=== PATIENT | female | born 1960 | race Caucasian/White ===

== ENCOUNTER 2024-11-29 14:04 | Outpatient (CLI) | payer MEDICARE, MEDICAID, SELFPAY ==
--- NOTE | ~2024-11-29 | XR_ITS ---
XR wrist RT min 3V 11/29/2024 14:27 Indication: Left wrist pain after injury Procedure: 4 views left wrist Comparison: No prior studies for comparison. Findings: There is anatomic alignment. No fracture, subluxation or dislocation. Normal mineralization . No foreign bodies. Impression: 1: No significant bone or joint abnormality. Reviewed, dictated and finalized at location A. Impression: 1: No significant bone or joint abnormality.
== END 2024-11-29 14:05 | disposition home or self-care (01) ==
LOC: MICIMG 14:08
PROVIDERS: PCP Physician Assistant Medical; Visit Provider Physician Assistant Medical
DX: S69.91XA Unspecified injury of right wrist, hand and finger(s), initial encounter (principal); X58.XXXA Exposure to other specified factors, initial encounter
CPT/HCPCS: 73110

== ENCOUNTER 2024-11-30 07:45 | Outpatient (CLI) | payer MEDICARE, MEDICAID, SELFPAY ==
--- OUTSIDE RECORDS SUMMARY | 2024-11-30 07:49 | XMS_ITS ---
Author Organization [facility] Address [facility] [facility] [place] [address] Care Team Providers Care Resin Shaver Name Role Phone Luba Hutton MD Primary Care Provider [phone] Active Problems Problem Noted Date Diagnosed Date Shortness of breath 10/16/2018 Small cell lung cancer 10/14/2018 Cancer Staging:Clinical stage from 10/01/2018:Stage IIIB(cT3, cN2, cM0) - Signed by Thomas Dao MD on 09/02/2023 Encounter for chemotherapy management 09/30/2018 Encounter for intubation 09/30/2018 Mass 09/24/2018 COPD exacerbation Current Treatment and Therapy Plans No current plan information found. Past Treatment and Therapy Plans Lifetime Dose Tracking * Chemical Lifetime Dose Automatic Entry Manual Entr y Dose Length Product 5,882 mGy-cm 5,882 mGy-cm 0 mGy-cm
--- OUTSIDE RECORDS SUMMARY | 2024-11-30 07:49 | XMS_ITS | Encounter Summary ---
Author Organization [facility] Address [address] [facility] [place] [address] Care Team Providers Care Hand Candle Dipper Name Role Phone Luba Hutton MD Primary Care Provider [phone] Reason for Visit * Reason Onset Date Comments MEDICATION REFILL 06/13/2019 Encounter Details Date Type Department Care Team (Late st Contact Info) Description 06/13/[address] 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 Answer Date of Assessment Author No 10/17/2018 1:34 AM Lamar Brito RN * Is person blind or have serious difficulty seeing? Answer Date of Assessment Author No 10/17/2018 1:34 AM Lamar Brito RN * Does person have serious difficulty walking/climbing stairs? Answer Date of Assessment Author No 10/17/2018 1:34 AM Lamar Brito RN * Does person have difficulty dressing/bathing? Answer Date of Assessment Author No 10/17/2018 1:34 AM CDT Lamar Farrell RN * Does person have difficulty doing errands alone? Answer Date of Assessment Author No 10/17/2018 1:34 AM CDT Lamar Farrell RN documented as of this encounter Mental Status * Does person have difficulty concentrating/remembering/making decisions? Answer Entry Date Author No 10/17/2018 1:34 AM CDT Lamar Farrell RN documented in this encounter Miscellaneous Notes * Telephone Encounter - Henrique Sami - 06/13/2019 11:56 AM CST Patient requesting refills for the following Zantac 150 mg medications. FILI: NOV: Problem List Identified: office visit on * Medication attached per refill protocol/guidlines for further review by provider yes PCP / Resident PCP verified yes Allergies Reviewed yes Pharmacy Reviewed yes Medication details entered yes Office visit within the last six months no if not within last 6 months route to GIM-scheduling as well. Office visit greater than 12 months no routed to GIM scheduling ONLY no. 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 - Hematology/Oncology [address] [place] [phone] Thomas Dao MD [address] [place] [phone] 12/29/2024 3:00 PM CDT Appointment [facility] RAD ONC [address] [place] [phone] Doron Lanier MD [address] [place] [phone] documented as of this encounter Visit Diagnoses Not on filedocumented in this encounter Care Teams Hand Candle Dipper Relationship Specialty Start Date End Date Luba Hutton MD PCP - General 10/14/18 documented as of this encounter
--- OUTSIDE RECORDS SUMMARY | 2024-11-30 07:49 | XMS_ITS | Clinical Summary ---
Author Organization [facility] at [facility] Address [address] [place] [address] Care Team Providers Care Corporate Counselor Name Role Phone Geronimo Rodgers MD Primary Care Provider [phone] Allergies No known active allergies Medications amLODIPine (NORVASC) 5 mg tablet Take 5 mg by mouth daily 10/06/2021 Active metoprolol tartrate (LOPRESSOR) 25 mg immediate release tablet 12/03/2021 Acti ve montelukast (SINGULAIR) 10 mg tablet 12/06/2021 Active cyclobenzaprine (FLEXERIL) 10 mg tablet 12/04/2021 Active famotidine (PEPCID) 20 mg tablet 12/03/2021 Active sertraline (ZOLOFT) 100 mg tablet 11/10/2021 Active albuterol HFA (PROVENTIL HFA,VENTOLIN HFA,PROAIR HFA) 90 mcg/actuation inhaler 12/03/2021 Active Eliquis 5 mg tablet Take 1 tablet (5 mg total) by mouth 2 (two) times a day 60 tablet 3 12/10/2021 Active Active Problems No known active problems Encounters Date Type Department Care Team Description 09/22/2024 ACO Clinical Pharmacist [facility] Care Organization [address] [place] [phone] Leslie Hercules RPh from Last 3 Months Surgical History Surgery Date Site/Laterality Comments SECTION HYSTERECTOMY 07/05/1993 - 1994 Total hysterectomy NECK SURGERY OOPHORECTOMY 07/05/1993 - 1994 Bilateral BREAST BIOPSY Left Benign PORT PLACEMENT CHEST >5 YEARS 10/19/2018 N/A Medical History Medical History Date Comments Hypertension COPD (chronic obstructive pulmonary disease) (HC C) Asthma Sciatica Arthritis Lung cancer (HCC) 2019 History of chemotherapy 2019 Lung can cer History of radiation therapy 2019 Chris g cancer Family History Medical History Relation Name Comments Cancer Father Cancer Mother Breast cancer Neg Hx Relation Name Status Comments Father Mother Social History Tobacco Use Types Packs/Day Years Used Date Smoking Tobacco: Every Day Cigarettes Smokeless Tobacco: Never Comments No Sex and Gender Information Value Date Recorded Sex Assigned at Not on file 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 Gender Identity Not on file Sexual Orientation Not on file Obstetrics History Para Term AB IAB SAB Ectopic Multiple Livin g Live Births 3 3 3 Date Outcome GA Total Labor Labor//3rd Weight Sex Type Anes PTL Trini A1 A5 Name Clin Term Term Term Last Filed Vital Signs Vital Sign Reading Time Taken Comments Blood Pressure 135/80 12/10/2021 3:25 PM CDT Pulse 98 12/10/2021 3:08 PM CDT Temperature 36.9 C (98.5 F) 01/16/2018 1:19 PM CDT Respiratory Rate - - Oxygen Saturation 96% 12/10/2021 3:08 PM CDT Inhaled Oxygen Concentration - - Weight 72.6 kg (160 lb 1.6 oz) 12/10/2021 3:08 P M CDT Height 157.5 cm (5' 2) 12/10/2021 3:08 PM CDT Body Mass Index 29.28 12/10/2021 3:08 PM CDT Plan of Treatment Health Maintenance Due Date Last Done Comments Colon Cancer Screening-Colonoscopy 1958 Depression Screening 1958 Fall Risk Assessment 1958 Hepatitis C Screening 1960 Osteoporosis Screening-Bone Density Scan 1958 Hepatitis B Screening 1976 Zoster Vaccine (1 of 2) 2008 Pneumococcal vaccine 65+ (2 of 2 - PCV) 04/23/2015 04/23/2014, 03/28/2009 Well Visit 65+ 2023 Covid-19 Vaccine (2023-2 5 season) 2024 07/14/2021, 12/21/2020, 11/23/2020 Breast Cancer Screening-Mammogram 02/09/2025 024, 01/26/2023 Influenza Vaccine (Season Ended) 2025 04/20/2021, 03/19/2020, 03/19/2020, Additional history exists DTaP/Tdap/Td Vaccine (2 - Td or Tdap) 06/01/2026 06/01/2016 Procedures Procedure Name Priority Date/Time Associated Diagnosis Comments SCREENING MAMMOGRAM BILATERAL W JOMAR Schedule Routine, Read Routine (OP Routine) 02/10/2024 10:54 AM CDT Screening mammogram, encounter for from Last 3 Months or Most Recently Relevant to Health Maintenance Results * Screening Mammogram Bilateral W Jomar (02/10/2024 10:54 AM CDT) Anatomical Region Laterality Modality Breast Bilateral Mammography Impressions 02/10/2024 11:01 AM CDT BI-RADS ATLAS category (overall): 1 - Negative There is no mammographic evidence of malignancy. A 1 year screening mammogram is recommended. The patient has been or will be contacted. We recommend annual screening mammography for women at average risk of breast cancer beginning at age 40, based on guidelines of the [place] [employer] (ACR Practice Parameter for the Performance of Screening and Diagnostic Mammography) and [place] [employer]. For women with and elevated risk of breast cancer, please refer to the ACR Practice Parameter for specific screening recommendations. The patient will be entered into a reminder system with a target due date of 1 year for her next screening exam. Narrative 02/10/2024 11:01 AM CDT Screening Mammogram Bilateral W Jomar: 02/10/24 The study was acquired using full field digital technology and interpreted from soft copy. 2D digital mammographic views, as well as 3D digital tomosynthesis were performed in the CC and MLO projections. CLINICAL: Screening mammogram, encounter for. Medical history includes chemotherapy and radiation therapy. History of breast cancer in Neg Hx. COMPARISONS: 01/26/2023 Screening Mammogram Bilateral W Jomar 12/26/2015 Breast Imaging Screening Outside Reference 08/15/2014 Breast Imaging Diagnostic Outside Reference BREAST TISSUE: The breasts are almost entirely fatty. FINDINGS: There is an unchanged biopsy clip in the left breast. There is no new suspicious finding in either breast on mammogram. us Self Screening Mammogram IMG MAMMO PROCEDURES Fi nal Result from Last 3 Months or Most Recently Relevant to Health Maintenance Insurance [facility] [place] Care Teams Corporate Counselor Relationship Specialty Start Date End Date Geronimo Rodgers MD [address] [place] [address] PCP - General Internal Medicine 01/27/24
--- OUTSIDE RECORDS SUMMARY | 2024-11-30 07:49 | XMS_ITS | Referral Summary ---
Author Organization [facility] at [facility] Address [address] [place] [address] Care Team Providers Care Artillery Specialist Name Role Phone Geronimo Rodgers MD Primary Care Provider [phone] Encounters Date Type Department Care Team Description 09/22/2024 ACO Clinical Pharmacist [facility] Accountable Care Organization [address] [place] [id number] Leslie Hercules [facility] from Last 3 Months Allergies No known active allergies Medications amLODIPine [...] Active Active Problems No known active problems Social History Tobacco Use Types Packs/Day Years Used Date Smoking Tobacco: Every Day Cigarettes Smokeless Tobacco: Never Comments No Sex and Gender Information Value Date Recorded Sex Assigned at Not on file 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 For women [...] Most Recently Relevant to Health Maintenance [place] [address] [address] [facility] Care Teams Artillery Specialist Relationship Specialty Start Date End Date Geronimo Rodgers MD [address] [place] [address] PCP - General Internal Medicine 01/27/24
--- OUTSIDE RECORDS SUMMARY | 2024-11-30 07:49 | XMS_ITS | Clinical Summary ---
Author Organization [facility] Address [address] [place] [address] Care Team Providers Care Fleet Director Name Role Phone Luba Hutton MD Primary Care Provider Source Comments [facility],non-owned Affiliates and Associated Physician Practices is amultiple site organization consisting of ambulatory clinics and hospital sitesin [place], [place], [place] and [place]. This disclosure is being madepursuant to the Care Everywhere program and may not contain all information available regarding this patient. Last updated 18.[facility] Allergies Active Allergy Reactions Criticality Noted Date Comments Lisinopril Cough 09/25/2018 Trazodone Urticaria Medium 09/25/2018 Medications * Be aware that medications may not be up to date on this document. Alwaysverify current medications with the patient. albuterol HFA (PROVENTIL HFA) 108 (90 BASE) MCG/ACT inhaler Inhale 2 puffs by mouth every 6 hours as needed 1 Inhaler 5 9 Active acetaminophen (TYLENOL) 325 MG tabletIndicati ons:Pain Take 1 tablet by mouth every 6 hours as needed Maximum allowable Acetaminophen amount = 4 Grams (4000 mg) / 24 hours. Reasons: Pain 9 Active hydrOXYzine hcl (ATARAX) 25 MG tablet Take 1 (one) tablet by mouth as needed for Itching Active albuterol (PROVENTIL;JERMAINE TOLIN) (2.5 MG/3ML) 0.083% nebulizer solution Inhale 2.5 mg by mouth every 6 hours as needed for Shortness of Breath or Wheezing 60 vial 2 9 Active INCRUSE ELLIPTA 62.5 MCG/INH inhaler INHALE 1 PUFF PO ONCE DAILY 1 9 Active Spacer/Aero-Ho lding Chambers TEO Please use as needed with albuterol inhaler. 1 device 9 Active ELIQUIS 5 MG tablet Take 1 (one) tablet by mouth once daily 0 Active sertraline (ZOLOFT) 100 MG tablet Take 1 (one) tablet by mouth once daily 0 Active famotidine (PEPCID) 20 MG tablet Take 1 (one) tablet by mouth 2 times daily 1 Active metoprolol tartrate (LOPRESSOR) 25 MG tablet Take 1 (one) tablet by mouth 2 times daily 1 Active montelukast (SINGULAIR) 10 MG tablet Take 1 (one) tablet by mouth every evening 1 Active amLODIPine (Norvasc) 5 MG tablet Take 1 (one) tablet by mouth once daily 2 Active cyclobenzaprin e (Flexeril) 10 MG tablet Take 1 (one) tablet by mouth 2 times daily as needed 2 Active Active Problems Problem Noted Date Diagnosed Date Shortness of breath 10/16/2018 Small cell lung cancer 10/14/2018 Cancer Staging:Clinical stage from 10/01/2018:Stage IIIB(cT3, cN2, cM0) - Signed by Thomas Dao MD on 09/02/2023 Encounter for chemotherapy management 09/30/2018 Encounter for intubation 09/30/2018 Mass 09/24/2018 COPD exacerbation Encounters Date Type Department Care Team Description 10/05/2024 12:40 PM CDT - 10/05/2024 11:59 PM CDT Hospital Encounter [facility] [address] [place] [id number] Thomas Dao MD Discharge Disposition: Home or Self Care 10/05/2024 Travel 09/14/2024 Orders Only [facility] - Rad/Onc [address] [place] [address] Doron Lanier MD 09/13/2024 Telephone [facility] ONC [address] [place] [address] Silva, Paula, RN Appointment from Last 3 Months Immunizations Immunization Administration Dates Next Due INFLUENZA VACCINE 03/19/2020,04/08/2019 Social History Tobacco Use Types Packs/Day Years Used Date Smoking Tobacco: Light Smoker Cigarettes 1 50.2 Started: 09/25/1974 Smokeless Tobacco: Never Tobacco Cessation:Ready to Q uit: Not Asked; Counseling Given: Not Answered Alcohol Use Standard Drinks/Week Comments Yes 1 (1 standard drink = 0.6 oz pur e alcohol) social AUDIT-C Answer Date Recorded Q1: How often do you have a drink containing alcohol? Never 12/09/2022 Q2: How many drinks containi ng alcohol do you have on a typical day when you are drinking? Patient does not drink Q3: How often do you have si x or more drinks on one occasion? 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 Gender Identity Not on file Sexual Orientation Not on file Last Filed Vital Signs Vital Sign Reading Time Taken Comments Blood Pressure 143/73 09/03/2023 9:52 AM BUILDING CONSTRUCTION ENGINEER Pulse 80 09/03/2023 9:52 AM BUILDING CONSTRUCTION ENGINEER Temperature 36.7 C (98 F) 09/03/2023 9:52 AM BUILDING CONSTRUCTION ENGINEER Respiratory Rate 20 09/03/2023 9:52 AM BUILDING CONSTRUCTION ENGINEER Oxygen Saturation 96% 09/03/2023 9:52 AM BUILDING CONSTRUCTION ENGINEER Inhaled Oxygen Concentration 35% 10/05/2018 8 :18 AM CDT Weight 71.7 kg (158 lb) 09/03/2023 9:52 AM BUILDING CONSTRUCTION ENGINEER Height 157.5 cm (5' 2) 03/26/2023 10:25 AM CDT Body Mass Index 28.9 03/26/2023 10:25 AM CDT Plan of Treatment Upcoming Encounters Date Type Department Care Team (Late st Contact Info) Description 12/02/2024 7:30 AM CDT Appointment [facility] [address] [place] [address] Doron Lanier MD [address] [place] [address] 12/05/2024 2:00 PM CDT Office Visit [facility] - Hematology/Oncology [address] [place] [address] Thomas Dao MD [address] [place] [address] 12/29/2024 3:00 PM CDT Appointment [facility] [address] [place] [address] Doron Lanier MD [address] [place] [address] Health Maintenance Due Date Last Done Comments BONE DENSITY TESTING 1960 COLOGUARD (AGES 45-75) - COLON CA SCREENING 1958 COLON MONITORING 1958 COLONOSCOPY - COLON CA SCREENING 1958 CT COLONOGRAPHY - COLON CA SCREENING 1960 Colorectal Cancer Screening 1958 FIT - COLON CA SCREENING 1958 FLEX SIG - COLON CA SCREENING 1958 LIPID TESTING 1958 HEPATITIS C SCREENING 06/29/1976 DTAP/TDAP/TD VACCINES (1 - Tdap) 1977 PNEUMOCOCCAL VACCINE 50+ (1 of 2 - PCV) 1977 ZOSTER VACCINE (1 of 2) 2008 Respiratory Syncytial Virus (RSV) Vaccine Pt: or over 60 yrs (1 - Risk 60-74 years 1-dose series) 2018 COVID-19 VACCINE ( season) 2024 04/01/2022, 07/14/2021, 12/21/2020, Additional history exists DEPRESSION SCREENING 07/05/2024 MEDICARE AWV CALENDAR YEAR 2024 INFLUENZA VACCINE (Season Ended) 2025 04/01/2022, 04/20/2021, 03/19/2020, Additional history exists MAMMOGRAM 02/09/2026 02/10/2024, 08/0 02/2024, 01/26/2023, Additional history exists HEPATITIS B VACCINE Aged Out No longe r eligible based on patient's age to complete this topic HIB VACCINE Aged Out No longer eligi ble based on patient's age to complete this topic HPV VACCINE Aged Out No longer eligi ble based on patient's age to complete this topic MENINGOCOCCAL (Group B) VACCINE SHARED DECISION-MAKING Aged Out No longer eligible based on patient's age to complete this topic MENINGOCOCCAL GROUPS A/C/Y/W VACCINE Aged Out No longer eligible based on patient's age to complete this topic Medical Devices Implanted Type Area Mri Supervisor Device Identifier Shelf Expiration Date Model / Serial / Lot Port Implinfn Powerport Clrvu Argd Yanet Implanted:Qty: 1 on 10/19/2018 by Tanner Segura MD at [facility] Left: Chest Wall [employer] 10/03/2019 [id number] / / [id number] Procedures Procedure Name Priority Date/Time Associated Diagnosis Comments CT CHEST ABDOMEN PELVIS W CONT Routine 10/05/2024 1:29 PM CDT Small cell lung cancer (HCC) CREATININE - POCT INTERFACED Routine 10/05/2024 1:18 PM CDT from Last 3 Months Results * CT THORAX ABDOMEN PELVIS W CONT (10/05/2024 1:29 PM CDT) Anatomical Region Laterality Modality Chest, Abdomen, Pelvis Computed Tomography 10/05/2024 2:59 PM CDT Impressions 10/05/2024 4:51 PM CDT Impression: 1.New 1.4 cm subsolid nodule in the left lower lobe, indeterminate and could represent infectious etiology given the rapid development, however neoplasm could have a similar appearance. Short-term follow-up recommended. 2.Unchanged right lung consolidation and architectural distortion, consistent with post radiation changes. 3.No metastases in the abdomen or pelvis. > Dictated by Dalia Bob MD (resident programs assistant). I, Navi Beckman MD have personally reviewed and interpreted this examination/study. > Interpreting Provider: Navi Beckman MD on 10/05/2024 4:51 PM Narrative 10/05/2024 4:51 PM CDT EXAMINATION: CT CHEST ABDOMEN PELVIS W CONT DATE/TIME OF EXAM: 10/05/2024 1:31 PM, LOCATION [facility] HISTORY: C34.90: Small cell lung cancer (HCC) COMPARISON: CT chest abdomen pelvis from 0 07/02/2024 TECHNIQUE: CT of the chest, abdomen, and pelvis was performed after the uneventful administration of 100 mL of Isovue 370 intravenous contrast according to standard protocol. Findings: Chest: Lines and tubes: None. Lower Neck and Axillae: The thyroid gland enhances homogenously. No abnormal supraclavicular or axillary lymphadenopathy is seen. Airway, Lungs and pleura: Redemonstration of unchanged linear consolidation in the right hilar region and in the right central lung with architectural distortion and area of narrowing of the right central bronchi. There is a new subsolid nodule in the left lower lobe seen on series 4 image 58 measuring 1.4 cm. No pleural effusion or focal pleural thickening is identified. There is no evidence of pneumothorax. Heart and Pericardium: The heart size is normal. No pericardial effusion is present. Mediastinum and Shae: No enlarged lymph nodes are present. No mediastinal mass is identified. Thoracic Vasculature: The aorta and main pulmonary artery are normal in course and caliber. Abdomen/pelvis: Liver: There are focal areas of focal fatty infiltration in hepatic segments 3 and 5, unchanged from 2022. The portal vein is patent. Gallbladder and Bile Ducts: Gallbladder is surgically absent. The intrahepatic and extrahepatic bile ducts are nondilated. Spleen: Normal. Pancreas: Normal. Adrenals: Normal in morphology without mass lesion. Kidneys: The kidneys enhance symmetrically. There is no evidence of renal calculus or hydronephrosis. Left renal hyperdense cyst measuring 7 mm, unchanged. Gastrointestinal: The distal esophagus and stomach appear normal. The small bowel and colon are normal in caliber without evidence of wall thickening or obstruction. Mesentery/Peritoneum/Retroperitoneum: Normal. Bladder: Normal. Reproductive Organs: Uterus is surgically absent Vasculature: Atherosclerotic calcifications in the thoracic aorta and its branches. Bones: No suspicious lytic or blastic lesions. The visible osseous structures are intact. There is moderate L5-S1 degenerative disc disease. Procedure Note Navi Beckman MD - 10/05/2024 EXAMINATION: CT CHEST ABDOMEN PELVIS W CONT DATE/TIME OF EXAM: 10/05/2024 1:31 PM, LOCATION [facility] HISTORY: C34.90: Small cell lung cancer (HCC) COMPARISON: CT chest abdomen pelvis from 0 07/02/2024 TECHNIQUE: CT of the chest, abdomen, and pelvis was performed after the uneventful administration of 100 mL of Isovue 370 intravenous contrast according to standard protocol. Findings: Chest: Lines and tubes: None. Lower Neck and Axillae: The thyroid gland enhances homogenously. No abnormal supraclavicular or axillary lymphadenopathy is seen. Airway, Lungs and pleura: Redemonstration of unchanged linear consolidation in the right hilarregion and in the right central lung with architectural distortion and area of narrowing of the right central bronchi. There is a new subsolid nodule in the left lower lobe seen on series 4 image 58 measuring 1.4 cm. No pleural effusion or focal pleural thickening is identified. There isno evidence of pneumothorax. Heart and Pericardium: The heart size is normal. No pericardial effusion is present. Mediastinum and Shae: No enlarged lymph nodes are present. No mediastinal mass is identified. Thoracic Vasculature: The aorta and main pulmonary artery are normal in course and caliber. Abdomen/pelvis: Liver: There are focal areas of focal fatty infiltration in hepatic segments 3and 5, unchanged from 2021. The portal vein is patent. Gallbladder and Bile Ducts: Gallbladder is surgically absent. The intrahepatic and extrahepatic bile ducts are nondilated. Spleen: Normal. Pancreas: Normal. Adrenals: Normal in morphology without mass lesion. Kidneys: The kidneys enhance symmetrically. There is no evidence of renalcalculus or hydronephrosis. Left renal hyperdense cyst measuring 7 mm, unchanged. Gastrointestinal: The distal esophagus and stomach appear normal. The small bowel andcolon are normal in caliber without evidence of wall thickening or obstruction. Mesentery/Peritoneum/Retroperitoneum: Normal. Bladder: Normal. Reproductive Organs: Uterus is surgically absent Vasculature: Atherosclerotic calcifications in the thoracic aorta and its branches. Bones: No suspicious lytic or blastic lesions. The visible osseous structuresare intact. There is moderate L5-S1 degenerative disc disease. Impression: 1.New 1.4 cm subsolid nodule in the left lower lobe, indeterminate and could represent infectious etiology given the rapid development, however neoplasm could have a similar appearance. Short-term follow-uprecommended. 2.Unchanged right lung consolidation and architectural distortion, consistent with post radiation changes. 3.No metastases in the abdomen or pelvis. > Dictated by Dalia Bob MD (resident programs assistant). I, Navi Beckman MD have personally reviewed and interpreted this examination/study. > Interpreting Provider: Navi Beckman MD on 10/05/2024 4:51 PM [address] D[address] MD [address] ORDERABLES Final Result * (ABNORMAL) CREATININE - POCT INTERFACED (10/05/2024 1:18 PM CDT) Creatinine POCT 1.04 0.30 - 1.30 mg/dL 10/05/2024 1:23 PM CDT [facility] eGFR 59(L) >=90 mL/min/1.7 3 m2 10/05/2024 1:23 PM CDT [facility] Blood BLOOD SPECIMEN / Unknown 10/05/2024 1:18 PM CDT 10/05/2024 1:23 PM CDT Thomas Dao MD LAB - POINT OF CARE ORDERABLES Final Result Performing Organization Address [facility] Co de Phone Number [facility] [address] [place] [id number], [facility] [phone] from Last 3 [place] [address] MEDICAID - [place] [facility] MEDICARE [facility] Advance Directives Documents on File Type Date Recorded 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
--- OUTSIDE RECORDS SUMMARY | 2024-11-30 07:49 | XMS_ITS | Clinical Summary ---
Author Organization [facility] Address [address] [place] [id number] Phone Care Team Providers Care Guard Entrance Registrar Name Role Phone Suzette Spring Primary Care Provider [phone] Allergies Active Allergy Reactions Criticality Noted Date Comments Lisinopril Cough Low 09/23/2018 Trazodone Hives High 09/23/2018 Medications albuterol (2.5 MG/3ML) 0.083% nebulizer solution Inhale 2.5 mg every 6 hours as needed 10/17/2018 Active apixaban (ELIQUIS) 5 MG tablet TK 1 T PO BID 10/11/2018 Active famotidine (PEPCID) 20 MG tablet Take 20 mg by mouth 2 times daily 09/12/2020 Active sertraline (ZOLOFT) 100 MG tablet TK 1 T PO D 02/04/2020 Active Beclomethasone Diprop HFA (Qvar RediHaler) 40 MCG/ACT aerosol Inhale 2 puffs daily 10/12/2018 Active montelukast (SINGULAIR) 10 MG tablet Take 10 mg by mouth every night Active AMLODIPINE BESYLATE PO Take 5 mg by mouth Active metoprolol tartrate (LOPRESSOR) 25 MG tablet Take 25 mg by mouth daily Active cyclobenzaprine (FLEXERIL) 10 MG tablet Take 10 mg by mouth 3 (three) times a day if needed for muscle spasms Active Active Problems Problem Noted Date Diagnosed Date Chronic kidney disease Anemia Vitamin D deficiency Proteinuria Essential hypertension Social History Tobacco Use Types Packs/Day Years Used Date Smoking Tobacco: Every Day Smokeless Tobacco: Never Tobacco Cessation:Ready to Q uit: Not Asked; Counseling Given: Not Answered Comments Unknown Sex and Gender Information Value Date Recorded Sex Assigned at Not on file Legal Sex Female 8:40 AM MDT Gender Identity Not on file Sexual Orientation Not on file Last Filed Vital Signs Vital Sign Reading Time Taken Comments Blood Pressure 130/78 04/15/2023 11:26 AM CDT Pulse 96 04/15/2023 11:26 AM CDT Temperature - - Respiratory Rate - - Oxygen Saturation 92% 04/15/2023 11:26 AM CDT Inhaled Oxygen Concentration - - Weight 69.4 kg (153 lb) 04/15/2023 11:26 AM CDT Height 157.5 cm (5' 2) 04/15/2023 11:26 AM CDT Body Mass Index 27.98 04/15/2023 11:26 AM CDT Plan of Treatment Health Maintenance Due Date Last Done Comments Pneumococcal PPSV23/PCV13 65 + Years / High and Highest Risk (1 of 5 - PCV) 1977 Influenza Vaccine (Season Ended) 2025 03/19/20 20, 04/08/2019 Insurance PM INTERFACED INSURANCE Care Teams Guard Entrance Registrar Relationship Specialty Start Date End Date Suzette Spring DO [address] [address] PCP - General 12/25/21
--- OUTSIDE RECORDS SUMMARY | 2024-11-30 07:49 | XMS_ITS | Encounter Summary ---
Author Organization [facility] Address [address] [place] [address] Care Team Providers Care Char Conveyor Tender Name Role Phone Luba Hutton MD Primary Care Provider [phone] Reason for Visit * Reason Onset Date Comments MEDICATION REFILL 09/01/2019 Sertraline Ref ill Follow-up 09/06/2019 message relayed Encounter Details Date Type Department Care Team (Late st Contact Info) Description 09/01/2019 Refill [facility] General Internal Medicine [address] [facility] [address] [place] [address] Luba Hutton MD [address] [facility] [address] [place] [address] MEDICATION REFILL (Sertraline Refill ); Follow-up (message relayed) Social History Tobacco Use Types Packs/Day Years Used Date Smoking Tobacco: Former Cigarettes 1 50.2 S tarted: 09/25/1974 Smokeless Tobacco: Never Alcohol Use Standard Drinks/Week Comments Yes 1 (1 standard drink = 0.6 oz pur e alcohol) social Comments Unknown Sex and Gender Information Value Date Recorded Sex Assigned at Not on file 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 Answer Date of Assessment Author No 10/17/2018 1:34 AM CHERYT Lamar Farrell RN * Does person have difficulty doing errands alone? Answer Date of Assessment Author No 10/17/2018 1:34 AM CHERYT Lamar Farrell RN documented as of this encounter Mental Status * Does person have difficulty concentrating/remembering/making decisions? Answer Entry Date Author No 10/17/2018 1:34 AM CHERYT Lamar Farrell RN documented in this encounter Miscellaneous Notes * Telephone Encounter - Sami Duenas - 09/06/2019 1:21 PM CST Pharmacy called to f/u on refill request for pt. Upon chart review, message below provided: Not A GIM patient prescribed previously by Dr. Llamas ?? Unable to ROute to PCP listed Dr. Fanny Hutton. Caller verbalized understanding CHEESE WORKER * Telephone Encounter - Francine Farrar - 09/01/2019 8:50 AM CST Not A GIM patient prescribed previously by Dr. Sherwood. Unable to ROute to PCP listed Dr. Fanny Hutton. CHEESE WORKER documented in this encounter Plan of Treatment Upcoming Encounters Date Type Department Care Team (Late st Contact Info) Description 12/02/2024 7:30 AM CDT Appointment [facility] MRI [address] [place] [address] Doron Lanier MD [address] [place] [address] 12/05/2024 2:00 PM CDT Office Visit [facility] - Hematology/Oncology [address] [place] [phone] Thomas Dao MD [address] [place] [address] 12/29/2024 3:00 PM CDT Appointment [facility] [address] [place] [address] Doron Lanier MD [facility] [place], [place] [id number] documented as of this encounter Visit Diagnoses Not on filedocumented in this encounter Care Teams Char Conveyor Tender Relationship Specialty Start Date End Date Luba Hutton MD PCP - General 10/14/18 documented as of this encounter
[2024-11-30 08:33] LABS: Basophils Percent Auto 0.6 % (0.2-1.2); Eosinophils Absolute Auto 0.2 K/mm3 (0-0.3); Eosinophils Percent Auto 2.4 % (0-4.4); Hematocrit 43.1 % (37.0-47.0); Hemoglobin 13.7 g/dL (12.0-15.0); Immature Granulocyte Absolute 0.02 K/mm3 (0.00-0.031); Immature Granulocyte Percent A 0.3 % (0-0.5); Lymphocytes Absolute Auto 2.25 K/mm3 (0.9-3.2); Mean Corpuscular HGB Conc 31.8 g/dl (32-36); Mean Corpuscular Hemoglobin 28.8 pg (26-34); Mean Corpuscular Volume 90.5 fl (80-100); Mean Platelet Volume 8.7 fl (7.4-10.4); Monocytes Absolute Auto 0.6 K/mm3 (0.1-0.6); Monocytes Percent Auto 9.4 % (2.6-8.5); Neutrophils Absolute Auto 3.2 K/mm3 (1.3-6.7); Neutrophils Percent Auto 51.3 % (45.5-73.1); Platelet Count Result 360 k/mm3 (150-375); Red Blood Count 4.76 M/mm3 (4.2-5.4); White Blood Count 6.3 K/mm3 (4.5-10.0)
[2024-11-30 09:38] LABS: Alanine Aminotransferase 15 U/L (6-35); Albumin Level 4.4 g/dL (3.5-5.1); Alkaline Phosphatase 93 U/L (38-126); Anion Gap 7 mmol/L (4-12); Aspartate Amino Transferase 29 U/L (14-36); Bilirubin,Total 0.5 mg/dL (0.2-1.3); Blood Urea Nitrogen 15 mg/dL (7-17); Calcium 9.6 mg/dL (8.4-10.2); Carbon Dioxide 25 mmol/L (22-30); Chloride 106 mmol/L (98-107); Cholesterol 225 mg/dL (0-200); Estimated Glomerular Filt Rate > 60; Glucose 113 mg/dL (65-110); HDL Direct 52 mg/dL; Potassium 4.2 mmol/L (3.4-5.0); Sodium 138 mmol/L (137-145); Triglycerides 266 mg/dL (<150)
[2024-11-30 09:49] LABS: LDL Cholesterol Direct 112 mg/dL
== END 2024-11-30 07:46 | disposition home or self-care (01) ==
PROVIDERS: PCP Physician Assistant Medical; Visit Provider Physician Assistant Medical
DX: C34.90 Malignant neoplasm of unspecified part of unspecified bronchus or lung (principal); J44.9 Chronic obstructive pulmonary disease, unspecified; I10 Essential (primary) hypertension; E78.5 Hyperlipidemia, unspecified
CPT/HCPCS: 36415; 80053; 80061; 84443; 85025